=== PATIENT | male | born 1950 | race Two or more races ===

== ENCOUNTER 2019-02-05 12:14 | Day surgery (SDC) | payer MEDICARE, OTHER ==
[2019-02-05] MEDS ORDERED: FENTAnyl 50 MCG/ML VIAL (12:45)
[2019-02-05] MEDS ORDERED: LIDOCAINE 100 MG SYRINGE (12:45)
[2019-02-05] MEDS ORDERED: PROPOFOL 40 ML (12:45)
== END 2019-02-05 14:14 | disposition home or self-care (01) ==
LOC: GIL 12:14
DX: K92.1 Melena (principal); K64.8 Other hemorrhoids; D12.5 Benign neoplasm of sigmoid colon; K29.60 Other gastritis without bleeding
CPT/HCPCS: 43239; 88305